=== PATIENT | male | born 1955 | race Caucasian/White ===

== ENCOUNTER → 2018-11-10 | Outpatient (CLI) | payer BC ==
[~2018-11-10] MED LIST: ALPR0.5T6 PO; FLEC100T PO; GABA-585 PO; METO25TA2 PO; OLAN5TAB9 PO; TRAM50TA PO; WARF6TAB47 PO
--- NOTE | 2018-11-10 20:03 | PAIN ---
DATE OF SERVICE: 11/10/2018 INITIAL CONSULTATION FOR PAIN CLINIC CHIEF COMPLAINT: Low back and left lower extremity pain. HISTORY OF PRESENT ILLNESS: This is a 63-year-old male who presents with history of pain for about 1 year, not a result of any specific injury or action he is aware of pain in the low back and radiating to the left lower extremity, mostly in the posterior gluteus, posterior lateral thigh, lateral anterior thigh on the left side, worse with walking, standing, sometimes in the groin on the left side as well, worse with steps climbing, walking up hill. The patient reports it is becoming more sharp and stabbing, described as radiating with some numbness and tingling in the left leg as well with activity. The patient rates his pain as a 7 on a scale of 10 at its average and is a 7 today. The patient reports no loss of motor function, but awakened him from sleep very rarely, better with sitting or lying down, worse with standing, walking, especially with hills. The patient reports it does not affect his bowel or bladder control but does affect his ability to walk significantly, though he is not using assistive devices to ambulate. The patient has tried tramadol, which does decrease the pain but only minimally. The patient has had no other formal physical therapies at this time and no other traction or chiropractic treatments or other modalities. He did try a prednisone Dosepak, which helped by about 50%, but only temporarily. The patient rates his disability rate from 0-10, 10 being the worst, is an 8 with family and home responsibilities and social activity, 10 with recreation, 0 with occupational activities, 3 with sexual behavior, 3 with self-care and 0 with life support activities. He did have an MRI scan of the lumbar spine dated 01/27/2018 showing right foraminal disk herniation at L4-L5 compressing the exiting right L4 nerve root, right L2-L3 and L3-L4 neural foraminal narrowing, less severe neural foramen narrowing at other levels with lumbar disk bulges and degenerative disk changes throughout the lower lumbar spine. The patient reports no loss of motor function but significant fatigability of the left leg with walking more than about 10-15 minutes, better with sitting or lying down. He is starting to favor the left leg though and it is beginning having more pain in his knee on his right side as he is favoring the left. PAST MEDICAL HISTORY: Significant for hypertension, atrial fibrillation and arthritis. PAST SURGICAL HISTORY: Previous surgeries include left knee repair; right knee repair, scope surgeries, both of these rotator cuff repair on the left and tonsillectomy as a child. CURRENT MEDICATIONS: Include tramadol, alprazolam, olanzapine, warfarin, Toprol, gabapentin and flecainide. ALLERGIES: The patient allergic to MORPHINE. FAMILY HISTORY: Significant for no major medical problems or conditions he is aware of. SOCIAL HISTORY: The patient does not smoke; does not drink alcohol and does not use any illegal, illicit or recreational drugs. He is , lives with his spouse in [place], [place]. REVIEW OF SYSTEMS: The patient's review of systems is positive for those items mentioned in history of present illness. All systems reviewed and otherwise negative. It is complete, full and well documented on the patient's chart. PHYSICAL EXAMINATION: VITAL SIGNS: The patient's blood pressure 114/64, pulse is 80, respirations 16, temperature is 97.0 degrees Fahrenheit, height 6 feet 1 inch and weight is 271 pounds. GENERAL: The patient is awake, alert, oriented, appropriate and very pleasant demeanor. HEENT: Head shows normocephalic and atraumatic. Extraocular movements intact and symmetrical. Oral cavity: Mucous membranes are moist and pink. Dentition is intact. NECK: Shows anterior throat supple without palpable lymphadenopathy noted. Swallow reflex is symmetrical. CHEST: Shows normal on inspection. Breath sounds are clear to auscultation bilaterally. HEART: Shows S1 and S2 clear. No murmurs auscultated, somewhat irregular rate. ABDOMEN: Soft, obese, nontender and nondistended. No palpable organomegaly is noted. No rebound or guarding demonstrated. Breath sounds are clear to auscultation bilaterally on chest exam as well. BACK: The patient's back shows spine grossly in the midline. Normal appearing thoracic kyphosis, cervical lordotic curvature and lumbar lordotic curvature. Lumbar paraspinous muscle shows symmetrical on inspection and palpation shows some moderate tenderness diffusely but without radiation. The patient shows good rotational motion of the lumbar spine, both laterally greater than 10 degrees, right and left as well as extension greater than 10 degrees, forward flexion 45 degrees without significant pain reported. No tenderness over the sacrum or sacroiliac regions over the spinous processes specifically. EXTREMITIES: The patient's lower extremities show deep tendon reflexes at 1+ in the patellar and tendo-calcaneus tendons are equal. Motor exam is strong with 5/5 dorsiflexion, extension on the right and 5/5 dorsiflexion, extension, quadriceps and hamstring flexion on the right and 4/5 hamstring flexion and quadriceps flexion on the left. Peripheral pulses are 1+ posterior tibia. No peripheral edema is noted. No clubbing or cyanosis. Lower extremities are warm and dry to touch, equal in color and appearance. No peripheral edema. Gaenslen's maneuvers and Josiah's maneuvers are negative bilaterally for reproduction of any pain. Straight leg raise noted to be mildly positive on the left at about 45 degrees and right side is negative. It is relieved on the left with knee flexion. The patient is able to stand, stand on his toes, walks with a slight limping gait favoring the left lower extremity only very slightly without any assistive devices. SKIN: Shows warm and dry. Good turgor. No edema. No sores, rashes or bruising. IMPRESSION: 1. This is a 63-year-old male with approximate 1-year history of increasing pain in the low back and left lower extremity in radicular fashion. 2. MRI scan of the lumbar spine as noted. 3. Hypertension and atrial fibrillation. 4. Arthritis. PLAN: Options were discussed with the patient including conservative medical management, physical therapy, interventional techniques and would like to pursue interventional techniques. We discussed a lumbar epidural steroid injection; however, we will first check with his landscape designer to determine if it is safe for him to be off of his Coumadin for approximately 5 days with PT and INR pending. If this is deemed safe and appropriate, we will have him hold this and return for lumbar epidural steroid injection at that time. The patient was counseled as to maintain taking his warfarin until we get word from his landscape designer and will be in contact with him at that time. POLY HEARD MD DR: IKE/alexi JOB#: [id number] / [id number] KURT Canseco MD
== END | disposition home or self-care (01) ==
LOC: PNCL 08:02
PROVIDERS: ATTEND Anesthesiology
DX: M54.5 Low back pain (principal); M79.605 Pain in left leg; I10 Essential (primary) hypertension; I48.91 Unspecified atrial fibrillation; M19.90 Unspecified osteoarthritis, unspecified site
CPT/HCPCS: G0463

== ENCOUNTER → 2018-11-21 | Outpatient (CLI) | payer BC ==
[~2018-11-21] MED LIST changes: +IOHEXOL 180 MG/ML 10 ML VIAL. ONE; +methylPREDNISolone ACETATE 40 MG/ML VIAL. ONE; +methylPREDNISolone ACETATE 80 MG/ML VIAL. ONE
[2018-11-21 11:03] LABS: PROTHROMBIN TIME PATIENT 13.7 SEC (11.7-14.0)
--- NOTE | 2018-11-21 12:53 | PAIN ---
DATE OF SERVICE: 11/21/2018 PROGRESS NOTE FOR PAIN CLINIC DIAGNOSES: Lumbar radiculopathy with lumbar degenerative disk disease, lumbar herniated disk. 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 The patient reports still significant pain in low back, left lower extremity, stabbing, aching, sharp, shooting, rates it 8 on a scale of 10 on average, 8 on the worst, 7 at its least and is an 8 today. The patient reports still significant pain. No new motor or sensory deficits, no new bowel or bladder incontinence or other complaints, but still difficulty with walking, standing, changing positions, better with sitting or lying down, does not awaken him from sleep, but still significantly painful with walking. PHYSICAL EXAMINATION: VITAL SIGNS: The patient's blood pressure is 149/81, pulse 68, respirations 18, temperature 98.1 degrees Fahrenheit, height 6 feet 1 inch, weight is 274 pounds. GENERAL: The patient is awake, alert, oriented, appropriate, very pleasant demeanor. HEENT: Head shows normocephalic, atraumatic. Extraocular movements intact and symmetrical. Oral cavity: Mucous membranes moist and pink. Dentition is intact. NECK: Shows anterior throat supple without palpable lymphadenopathy noted. Swallow reflex symmetrical. CHEST: Shows normal with inspection. Breath sounds clear to auscultation bilaterally. HEART: Shows S1, S2 clear. No murmurs auscultated. ABDOMEN: Soft, nontender, nondistended. No palpable organomegaly is noted. No rebound or guarding demonstrated. BACK: Shows spine grossly in the midline. Normal appearing thoracic kyphosis and lumbar lordotic curvature. Lumbar paraspinous muscle shows symmetrical on inspection, on palpation shows some moderate tenderness, but only diffusely in the low lumbar distribution, but without radiation. The patient has good rotational motion both laterally greater than 10 degrees right and left as well as extension greater than 10 degrees, forward flexion 45 degrees without significant pain reported. EXTREMITIES: The patient's lower extremities show deep tendon reflexes at 1+ in the patellar and tendo-calcaneus tendons. Motor exam is approximately 4 on a scale of 5 with left quadriceps and hamstring flexion and 5/5 with dorsiflexion and the right side is 5/5 throughout. Peripheral pulses are 1+ posterior tibial. No peripheral edema is noted bilaterally. Options were discussed with the patient. The patient's old chart was reviewed as his current medication regimen updated. Current review of systems updated today as well. We will proceed with a lumbar epidural steroid injection today with fluoroscopic guidance. Risks were again discussed including, but not limited to bleeding, infection, possibility of epidural hematoma, subsequent neurological compromise, dural puncture, headaches, spinal cord and/or nerve damage, side effects of steroid medication and poor results regarding pain control. The patient understands and wished to proceed. The patient will return to clinic in approximately 2 weeks for followup, was counseled as to return appointment, activity level and side effects to be aware of. DIAGNOSES: Lumbar radiculopathy with lumbar degenerative disk disease, lumbar herniated disk. PROCEDURE: Lumbar epidural steroid injection, translaminar approach L4-L5 level using C-arm fluoroscopic guidance under sterile prep and drape using local anesthetic. MEDICATION INJECTED: A total of 120 mg Depo-Medrol plus 10 mL preservative-free normal saline and 2 mL of Isovue for contrast. CONDITION AT DISCHARGE: Stable. The patient tolerated procedure well, had no complications. POLY HEARD MD DR: IKE/alexi JOB#: [id number] / [id number]
== END | disposition home or self-care (01) ==
LOC: PNCL 10:23
PROVIDERS: ATTEND Anesthesiology
DX: M51.16 Intervertebral disc disorders with radiculopathy, lumbar region (principal); Z88.5 Allergy status to narcotic agent; Z79.899 Other long term (current) drug therapy; Z79.01 Long term (current) use of anticoagulants
CPT/HCPCS: 36415; 62323; 85610; J1030; J1040; Q9965

== ENCOUNTER → 2018-12-12 | Outpatient (CLI) | payer BC ==
[~2018-12-12] MED LIST changes: -IOHEXOL 180 MG/ML 10 ML VIAL. ONE; -methylPREDNISolone ACETATE 40 MG/ML VIAL. ONE; -methylPREDNISolone ACETATE 80 MG/ML VIAL. ONE
[2018-12-12 09:14] LABS: PROTHROMBIN TIME PATIENT 13.6 SEC (11.7-14.0)
== END | disposition home or self-care (01) ==
LOC: LAB 08:43
PROVIDERS: ATTEND Anesthesiology
DX: Z79.01 Long term (current) use of anticoagulants (principal)
CPT/HCPCS: 36415; 62323; 85610

== ENCOUNTER → 2018-12-12 | Outpatient (CLI) | payer BC ==
[~2018-12-12] MED LIST changes: +IOHEXOL 180 MG/ML 10 ML VIAL. ONE; +methylPREDNISolone ACETATE 40 MG/ML VIAL. ONE; +methylPREDNISolone ACETATE 80 MG/ML VIAL. ONE
--- NOTE | 2018-12-12 11:52 | PAIN ---
DATE OF SERVICE: 12/12/2018 DIAGNOSES: 1. Lumbar radiculopathy with lumbar degenerative disk disease. 2. Lumbar herniated disk. HISTORY OF PRESENT ILLNESS: The patient is a 63-year-old male who returns for followup status post lumbar epidural steroid injection x 1 without any significant improvement. The patient reports still significant pain in the low back, left hip, left posterior gluteus, posterior lateral thigh, lateral anterior thigh, medial thigh, medial lower leg and medial calf. The patient reports it is worse with walking, standing, change in positions. The patient reports pain is 8 on a scale of 10 at its worst, 8 on average, 5 at its least and is 8 today. The patient reports it is stabbing, shooting, radiating with every step, more on the left side. The patient reports no new motor or sensory deficits, no new bowel or bladder incontinence, but still significant pain as noted. The patient reports it does not awaken him from sleep at night, though better with sitting or lying down, worse with walking. The patient reports no new changes. PHYSICAL EXAMINATION: VITAL SIGNS: The patient's blood pressure is 150/92, pulse 74, respirations 18, temperature is 97.8 degrees Fahrenheit, height 6 feet, weight is 268 pounds. GENERAL: The patient is awake, alert, oriented, appropriate, very pleasant demeanor. HEENT: Shows normocephalic, atraumatic. Extraocular movements intact and symmetrical. Oral cavity, mucous membranes are moist and pink. Dentition is intact. NECK: Shows anterior throat supple without palpable lymphadenopathy noted. Swallow reflex is symmetrical. CHEST: Shows normal on inspection. Breath sounds clear to auscultation bilaterally. HEART: Shows S1, S2 clear. No murmurs auscultated. ABDOMEN: Soft, nontender, nondistended. No palpable organomegaly is noted. No rebound or guarding demonstrated. BACK: Shows spine grossly in the midline. Normal-appearing thoracic kyphosis and lumbar lordotic curvature. Lumbar paraspinous muscle shows symmetrical on inspection; on palpation, it show some moderate tenderness diffusely in the lower lumbar distribution, more on the left than the right, without asymmetry, without trigger points or radiation. The patient has good rotational motion of lumbar spine, both laterally as well as extension and flexion without significant difficulty or pain reported. EXTREMITIES: Lower extremities show deep tendon reflexes at 1+ in the patella and tendo calcaneus tendons. Motor exam is approximately 4 on a scale of 5 on the left quadriceps and hamstring and 5/5 otherwise. Peripheral pulses are 1+ posterior tibia. No peripheral edema is noted bilaterally. Options were discussed with the patient. The patient's old chart was reviewed as was his current medication regimen updated. Current review of systems updated today as well. We will proceed with a second in a series of lumbar epidural steroid injection today with fluoroscopic guidance. Risks were again discussed including, but not limited to bleeding, infection, possibility of epidural hematoma, subsequent neurologic compromise, dural puncture, headaches, spinal cord and/or nerve damage, side effects of steroid medication and poor results regarding pain control. The patient understands and wished to proceed. The patient will return to clinic in approximately 2 weeks for followup, was counseled as to return appointment, activity level and side effects to be aware of. DIAGNOSES: 1. Lumbar radiculopathy with lumbar degenerative disk disease. 2. Lumbar herniated disk. PROCEDURE: Lumbar epidural steroid injection, translaminar approach at L4-L5 level using C-arm fluoroscopic guidance under sterile prep and drape using local anesthetic. MEDICATION INJECTED: A total of 120 mg Depo-Medrol plus 10 mL of preservative-free normal saline and 2 mL of Isovue for contrast. CONDITION AT DISCHARGE: Stable. The patient tolerated the procedure well, had no complications. POLY HEARD MD DR: IKE/alexi JOB#: [id number] / [id number]
== END | disposition home or self-care (01) ==
LOC: PNCL 08:41
PROVIDERS: ATTEND Anesthesiology
DX: M51.16 Intervertebral disc disorders with radiculopathy, lumbar region (principal); Z88.5 Allergy status to narcotic agent
CPT/HCPCS: 62323; J1030; J1040; Q9965

== ENCOUNTER → 2019-01-05 | Outpatient (CLI) | payer BC ==
--- NOTE | 2019-01-05 12:12 | PAIN ---
DATE OF SERVICE: 01/05/2019 DIAGNOSES: 1. Lumbar radiculopathy with lumbar degenerative disk disease. 2. Lumbar herniated disk. HISTORY OF PRESENT ILLNESS: The patient is a 63-year-old male who returns for followup status post lumbar epidural steroid injection x 2. The patient reports only decreased pain by about 20% in the low back and left lower extremity significantly. The patient reports it is much worse with walking, standing; better with sitting or lying down; does not awaken him from sleep frequently. The patient reports it is 8 on a scale of 10 on an average, 8 at its worst and 5 at its least and is 8 today. The patient reports it is aching, stabbing, severe, radiating, shooting and having more pain into the groin on the left side now as well. The patient reports no new motor or sensory deficits, no new bowel or bladder incontinence, but still significant pain in the left leg to the level of the calf, mostly in the lateral anterior aspect of the thigh as well as the medial lower leg. PHYSICAL EXAMINATION: VITAL SIGNS: The patient's blood pressure is 135/85, pulse 78, respirations are 16, temperature 98.1 degrees Fahrenheit, height is 6 feet, weight is 272 pounds. GENERAL: The patient is awake, alert, oriented, appropriate, very pleasant demeanor. HEENT: Head shows normocephalic, atraumatic. Extraocular movements are intact and symmetrical. Oral cavity: Mucous membranes are moist and pink. Dentist is intact. NECK: Shows anterior throat supple without palpable lymphadenopathy noted. Swallow reflex is symmetrical. CHEST: Shows normal with inspection. Breath sounds clear to auscultation bilaterally. HEART: Shows S1, S2 clear. No murmurs auscultated. ABDOMEN: Soft, nontender, nondistended. No palpable organomegaly is noted. There is no rebound or guarding demonstrated. BACK: Shows spine grossly in the midline. Normal appearing thoracic kyphosis and minor flattening of lumbar lordotic curvature. Lumbar paraspinous muscle shows symmetrical on inspection. On palpation, it shows some moderate tenderness diffusely bilaterally, but only diffusely without radiation. The patient has good rotational motion of lumbar spine, both laterally as well as extension and flexion without significant difficulty. EXTREMITIES: The patient's lower extremities show deep tendon reflexes 1+ in the patella and tendo-calcaneus tendons. Motor exam is approximately 4 on a scale 5 with left quadriceps and 5/5 dorsiflexion, extension and right quadricep and hamstring flexion. Peripheral pulses are 1+ in posterior tibia. No peripheral edema is noted bilaterally. ASSESSMENT AND PLAN: Options were discussed with the patient. The patient's old chart was reviewed as was his current medication regimen updated. Current review of systems updated today as well. We will proceed with a third in the series of lumbar epidural steroid injection with fluoroscopic guidance. Risks were again discussed including, but not limited to bleeding, infection, possibility of epidural hematoma, subsequent neurological compromise, dural puncture, headaches, spinal cord and/or nerve damage, side effects of steroid medication and poor results regarding pain control. The patient understands and wished to proceed. The patient to return to clinic in approximately 2 weeks for followup, was counseled as to return appointment, activity level and side effects to be aware of. DIAGNOSES: 1. Lumbar radiculopathy with lumbar degenerative disk disease. 2. Lumbar herniated disk. PROCEDURES: Lumbar epidural steroid injection, translaminar approach L4-L5 level using C-arm fluoroscopic guidance under sterile prep and drape using local anesthetic. MEDICATION INJECTED: A total of 120 mg Depo-Medrol plus 10 mL of preservative-free normal saline and 2 mL of Isovue for contrast. CONDITION AT DISCHARGE: Stable. The patient tolerated the procedure well, had no complications. POLY HEARD MD DR: IKE/alexi JOB#: [id number] / [id number]
== END | disposition home or self-care (01) ==
LOC: PNCL 09:09
PROVIDERS: ATTEND Anesthesiology
DX: M51.16 Intervertebral disc disorders with radiculopathy, lumbar region (principal); Z88.5 Allergy status to narcotic agent
CPT/HCPCS: 62323; J1030; J1040; Q9965

== ENCOUNTER → 2019-01-05 | Outpatient (CLI) | payer BC ==
[~2019-01-05] MED LIST changes: -IOHEXOL 180 MG/ML 10 ML VIAL. ONE; -methylPREDNISolone ACETATE 40 MG/ML VIAL. ONE; -methylPREDNISolone ACETATE 80 MG/ML VIAL. ONE
[2019-01-05 09:18] LABS: PROTHROMBIN TIME PATIENT 13.5 SEC (11.7-14.0)
== END | disposition home or self-care (01) ==
LOC: LAB 08:27
PROVIDERS: ATTEND Anesthesiology
DX: M51.16 Intervertebral disc disorders with radiculopathy, lumbar region (principal); Z88.5 Allergy status to narcotic agent
CPT/HCPCS: 36415; 85610

== ENCOUNTER → 2019-01-23 | Outpatient (CLI) | payer BC ==
--- NOTE | 2019-01-23 12:23 | KCIC ---
MR of the left hip HISTORY: Left hip pain for about one year. TECHNIQUE: Routine multiplanar sequences are obtained. FINDINGS: Severe primary osteoarthritis of the left hip with subchondral edema and cysts. Labral degeneration/tearing. Small a joint effusion. No aggressive bone destruction or acute fracture. Gluteus minimus and medius tendons are intact. Hamstring tendon intact. Iliopsoas insertion is not included on the axial images but appears grossly intact on the coronal images. Rectus femoris tendon attachment is intact. Large [id number] coronal survey sequence demonstrates moderate to severe degenerative changes at the right hip but less advanced than on the left. IMPRESSION: 1. Severe left hip primary osteoarthritis, also noted on the right. 2. Left hip labral degeneration/tearing. 3. Small left hip joint effusion. Electronically signed by: Ifeanyi Ramirez MD (01/23/2019 12:20 PM) [id number]
== END | disposition home or self-care (01) ==
LOC: KCIC MRI 09:31
PROVIDERS: ATTEND Anesthesiology
DX: M16.12 Unilateral primary osteoarthritis, left hip (principal); M25.452 Effusion, left hip; M24.152 Other articular cartilage disorders, left hip; Z88.5 Allergy status to narcotic agent
CPT/HCPCS: 73721